=== PATIENT | female | born 1935 | race African-American/Black ===

== ENCOUNTER 2018-06-03 19:11 | Emergency (ER) | payer SELFPAY ==
[~2018-06-03] VITALS: Ht 162.6 cm; Wt 61.2 kg
[2018-06-03] MEDS ORDERED: ACETAMINOPHEN 325MG TABLET PO ONE (23:15)
[2018-06-04 04:01] VITALS: BP 164/80
== END 2018-06-04 04:12 | disposition home or self-care (01) ==
LOC: ER 19:11
DX: M11.232 Other chondrocalcinosis, left wrist (principal); M11.242 Other chondrocalcinosis, left hand; J44.9 Chronic obstructive pulmonary disease, unspecified; F03.90 Unspecified dementia, unspecified severity, without behavioral disturbance, psychotic disturbance, mood disturbance, and anxiety; Z98.890 Other specified postprocedural states
CPT/HCPCS: 73110; 73130; 99283; Z7610

== ENCOUNTER 2019-03-21 10:19 | Emergency (ER) | payer BC, MEDICARE ==
[~2019-03-21] VITALS: Ht 157.5 cm; Wt 70.0 kg
[2019-03-21] MEDS ORDERED: ESCI10TA61 PO (10:39)
[2019-03-21] MEDS ORDERED: DONE5TAB33 PO (10:39)
[2019-03-21] MEDS ORDERED: LISI40TA4 PO (10:39)
[2019-03-21] MEDS ORDERED: FLUT1BLS IH (10:39)
[2019-03-21] MEDS ORDERED: FLUT15.844 BOTHNSTRLS (10:39)
[2019-03-21 12:01] LABS: BG BASE EXCESS 5.1 mmol/L (-2.0-2.0); BG CARBOXYHEMOGLOBIN 1.5 % (0.5-1.5); BG DEOXYHEMOGLOBIN 2.7 % (0.0-5.0); BG FRACTION INSPIRED OXYGEN 32; BG HCO3 ACT 31.2 mmol/L (22.0-26.0); BG METHEMOGLOBIN 0.3 % (0.0-1.5); BG OXYGEN SATURATION 97.3 % (92.0-98.5); BG OXYHEMOGLOBIN 95.5 % (94.0-97.0); BG PCO2 51.3 mmHg (35.0-45.0); BG PH 7.402 (7.350-7.450); BG PO2 98.3 mmHg (75.0-100.0); BG SAMPLE SITE RIGHT RADIAL; BG TOTAL HEMOGLOBIN 14.7 g/dL (12.0-18.0); BG VENT MODE NASAL CANNULA
[2019-03-21 12:04] LABS: BASOPHILS % 0.9 % (0.0-2.0); HEMATOCRIT. 44.6 % (36.0-48.0); HEMOGLOBIN. 14.5 g/dL (12.0-16.0); LYMPHOCYTES % 15.8 % (20.0-50.0); MEAN CORPUSCULAR HEMOGLOBIN 29.2 pg (28.0-32.0); MEAN CORPUSCULAR VOLUME 90.1 fL (81.0-99.0); MEAN PLATELET VOLUME 9.1 fl (7.4-10.4); MONOCYTES % 10.5 % (2.0-8.0); NEUTROPHILS % 70.8 % (40.0-76.0); PLATELET 231 x1000/uL (130-400); RED BLOOD CELL COUNT 4.95 mill/uL (4.2-5.4); RED CELL DISTRIBUTION WIDTH 15.1 % (11.6-14.6)
[2019-03-21 12:08] LABS: PROTHROMBIN TIME 10.6 sec (9.6-11.0)
[2019-03-21 12:09] LABS: CHLORIDE 105 mEq/L (98-107)
[2019-03-21 12:44] LABS: CLARITY URINE CLOUDY (CLEAR); COLOR URINE YELLOW (YELLOW); KETONES URINE NEGATIVE (NEGATIVE); LEUKOCYTE ESTERASE URINE TRACE (NEGATIVE); NITRITE URINE NEGATIVE (NEGATIVE); OCCULT BLOOD URINE NEGATIVE (NEGATIVE); PROTEIN URINE NEGATIVE (NEGATIVE); SPECIFIC GRAVITY URINE 1.008 (1.005-1.030)
[2019-03-21] MEDS ORDERED: FUROSEMIDE 40MG/4ML VIAL IVP ONE (14:30)
[2019-03-21] MEDS ORDERED: POTASSIUM CHLORIDE 20MEQ TABLET SR PO NR (14:30)
[2019-03-21] MEDS ORDERED: ENALAPRIL 1.25MG/ML VIAL 1ML IV PRN (16:45)
[2019-03-21] MEDS ORDERED: HYDRALAZINE 20MG/ML VIAL IV ONE (17:00)
[2019-03-21 17:43] VITALS: BP 130/70
== END 2019-03-21 17:56 | disposition short-term general hospital (02) ==
LOC: ER 10:19 → EDBEDREQTM 14:35 → EDBEDREQ 14:35 → EDBEDREQSVC 14:35 → CANBEDREQ 17:08 → ER 17:56
DX: R09.02 Hypoxemia (principal); J81.1 Chronic pulmonary edema; E87.6 Hypokalemia; I10 Essential (primary) hypertension; Z79.899 Other long term (current) drug therapy
CPT/HCPCS: 36415; 36600; 71045; 74176; 80053; 81003; 82375; 82805; 83605; 83690; 83880; 84145; 84484; 85025; 85610; 86850; 86900; 86901; 87040; 87077; 87086; 87186; 87804; 93005; 96374; 96375; 99285; J0360; J1940; J3490